=== PATIENT | male | born 1970 | race Caucasian/White ===

== ENCOUNTER 2018-10-05 06:55 | Observation (INO) | payer OTHER ==
[2018-10-04 13:53] LABS: BASOPHILS % 0.5 % (0.0-1.0); EOSINOPHILS # (AUTO) 0.1 (0.0-0.4); EOSINOPHILS % 1.1 % (0.0-6.0); HEMOGLOBIN 14.5 g/dL (14.0-18.0); LYMPHOCYTES # (AUTO) 1.3 (1.0-3.2); LYMPHOCYTES % 20.2 % (18.0-39.1); MEAN CORPUSCULAR HEMOGLOBIN 32.5 pg (28-32); MEAN CORPUSCULAR HGB CONC 35.4 g/dL (31-35); MEAN CORPUSCULAR VOLUME 91.9 fL (81-99); MONOCYTES # (AUTO) 0.5 (0.2-0.8); MONOCYTES % 8.2 % (4.4-11.3); NEUTROPHILS # (AUTO) 4.5 (2.1-6.9); NEUTROPHILS % 69.8 % (38.7-80.0); PLATELET COUNT 167 x10e3/uL (140-360); RED BLOOD COUNT 4.46 x10e6/uL (4.3-5.7); RED CELL DISTRIBUTION WIDTH 12.4 % (11.7-14.4)
[2018-10-04 14:02] LABS: INR 0.81; PARTIAL THROMBOPLASTIN TIME 29.2 seconds (23.8-35.5)
[2018-10-04 14:07] LABS: ANION GAP 12.1 mmol/L (8-16); BLOOD UREA NITROGEN 14 mg/dL (7-26); BUN/CREATININE RATIO 16 (6-25); CALCIUM 10.4 mg/dL (8.4-10.2); CARBON DIOXIDE 28 mmol/L (22-29); CHLORIDE 101 mmol/L (98-107); CREATININE, SERUM 0.85 mg/dL (0.72-1.25); EST GLOMERULAR FILTRATION RATE > 60 ML/MIN (60-); GLUCOSE 100 mg/dL (74-118); POTASSIUM 4.1 mmol/L (3.5-5.1); SODIUM 137 mmol/L (136-145)
--- NOTE | 2018-10-04 14:24 | Diagnostic Imaging Report ---
EXAMINATION: CHEST 2 VIEWS INDICATION: Preop neck surgery, C6-7 spondylosis COMPARISON: Chest x-ray 11/06/2016 FINDINGS: PA and lateral views TUBES and LINES: None. LUNGS: Lungs are well inflated. There is no evidence of pneumonia or pulmonary edema. PLEURA: No pleural effusion or pneumothorax. HEART AND MEDIASTINUM: The cardiomediastinal silhouette is unremarkable.. BONES AND SOFT TISSUES: Mild generative changes of the thoracic spine. No focal osseous lesions. Soft tissues are unremarkable. UPPER ABDOMEN: No free air under the diaphragm. IMPRESSION: No acute thoracic abnormality. Signed by: Dr. Clemente Garcia MD on 10/04/2018 2:20 PM
[~2018-10-05 06:55] MED LIST: BACITRACIN 50,000 UNIT VIAL ONE; BACTRIM DS1 EA; BUPIVACAINE 0.5%/EPI 30 ML SDV INJ ONE; BUPROPION HCL100 MG PO; FISH OIL300 MG; GELATIN SPONGE 12-7MM ONE; LISINOPRIL10 MG PO; NEXIUM40 MG PO; PROBIOTIC COMP1 EACH PO; THROMBIN FOR SOLN 5,000 UNIT VIAL ONE
--- OUTSIDE RECORDS SUMMARY | 2018-10-05 07:16 | XMS REPORT | Continuity of Care Document ---
Author Author [facility] Organization Interface Address Unknown Phone Unavailable Problems Problem Status Onset Date Classification Date Reported Comments Source Essential hypertension Resolved 11/24/2016 Problem 05/16/2018 [facility] H/O hyperlipidemia Resolved 11/24/2016 Problem 05/16/2018 [facility] H/O gastroesophageal reflux (<span ID="[id number]">Confirmed</span>) Resolved 11/24/2016 Problem 05/16/2018 [facility] CAD, ABN STRESS TEST, HYPERLIPIDEMIA Active 11/23/2016 [facility] CCL/LHC W/ POSS PCI/DX: CAD, ABN STRESS Active 11/23/2016 [facility] M50.90 - "CERVICAL DISC DISORDER, UNSP," Active 01/30/2016 [facility] Medications Medication Details Route Status Patient Instructions Ordering Provider Order Date Source Simvastatin 20 mg, 1 tab, Route: PO, Drug form: TAB, Bedtime, Dosing Weight 94.091, kg, Start date: 11/24/16 21:00:00 CRIMINAL RESEARCHER, Duration: 30 day, Stop date: 12/23/16 21:00:00 CSTNotes: (Same as: Zocor) Inactive 11/25/2016 [facility] Nitroglycerin 0.4 mg, 1 tab, Route: SL, Drug form: TAB, Q5Min, Dosing Weight 94.091, kg, PRN Chest Pain, Start date: 11/24/16 9:19:00 CRIMINAL RESEARCHER, Duration: 3 doses or times, Stop date: 11/24/16 17:00:00 CSTNotes: (Same a s:Nitroquick, Nitrostat) "Do Not Crush" Sublingual tablet Inactive 11/24/2016 [facility] multivitamin with minerals 1 tab, Route: PO, Drug Form: TAB, Dosing Weight 94.091, kg, Daily, Start date: 11/24/16 9:00:00 CRIMINAL RESEARCHER, Duration: 30 day, Stop date: 12/23/16 9:00:00 CSTNotes: (Same as:Thera-M, Theragran-M) WASTE: F/P - Black; E - Municipal Trash Bin Give with food. Inactive 11/24/2016 [facility] aspirin 81 mg tablet, enteric coated 81 mg, 1 tab, Route: PO, Drug form: ECTAB, Daily, Dosing Weight 94.091, kg, Start date: 11/24/16 9:00:00 CRIMINAL RESEARCHER, Duration: 30 day, Stop date: 12/23/16 9:00:00 CSTNotes: Do not crush or chew. (Same As: Ecotrin) Inactive 11/24/2016 [facility] Citalopram 10 mg, 1 tab, Route: PO, Drug form: TAB, Daily, Dosing Weight 94.091, kg, Start date: 11/24/16 9:00:00 CRIMINAL RESEARCHER, Duration: 30 day, Stop date: 12/23/16 9:00:00 CRIMINAL RESEARCHER Inactive 11/24/2016 [facility] sodium chloride 0.9% 1000 ml INJ 1,000 mL 1,000 mL, Rate: 75 ml/hr, Infuse over: 13.3 hr, Route: IVPB, Dosing Weight 94.09 kg, Total Volume: 1,000, Start date: 11/24/16 6:08:00 CRIMINAL RESEARCHER, Duration: 30 day, Stop date: 12/24/16 6:07:00 CRIMINAL RESEARCHER Inactive 11/24/2016 [facility] lisinopril 20 mg oral tablet 20 mg=1 tab, PO, Daily, # 30 tab, 0 Refill(s) Inactive 11/24/2016 [facility] simvastatin 20 mg oral tablet 20 mg=1 tab, PO, Bedtime, # 30 tab, 1 Refill(s) Active 11/24/2016 [facility] amLODIPine 10 mg oral tablet 10 mg=1 tab, PO, Daily, # 30 tab, 0 Refill(s) Inactive 11/24/2016 [facility] Fexofenadine hydrochloride 180 MG Oral Tablet [Li] 180 mg=1 tab, PO, Daily, PRN Congestion, # 30 tab, 0 Refill(s) Active 11/24/2016 [facility] citalopram 10 mg oral tablet 10 mg=1 tab, PO, Daily, # 30 tab, 0 Refill(s) Active 11/24/2016 [facility] aspirin 81 mg tablet, enteric coated 81 mg=1 tab, PO, Daily, # 90 tab, 3 Refill(s) Active 11/24/2016 [facility] multivitamin with minerals 1 tab, PO, Daily, 0 Refill(s) Active 11/24/2016 [facility] Allergies, Adverse Reactions, Alerts Substance Category Reaction Severity Reaction type Status Date Reported Comments Source Immunizations Immunization Date Given Site Status Last Updated Comments Source Results Order Name Results Value Reference Range Date Interpretation Comments Source Spine cervical wo contrast MRI Spine cervical wo contrast MRI Spine cervical wo contrast MRI , 05/13/2018 12:13 PM CDT. CLINICAL INDICATION: 47 years Male - M50.90 Cervical disc disorder, unspecified, unspecified cervical region . Comparison: January 30, 2016 plain films. TECHNIQUE: Sagittal T1 and T2 weighted images were followed by axial T2-weighted views of the cervical spine without IV contrast. FINDINGS: The cervical cord is normal in size and signal intensity. There is no syrinx. The cerebellar tonsils are normal in position above the level of the foramen magnum. There is congenital narrowing of the canal, measuring approximately 10 mm, which exaggerates the effects of degenerative changes. The vertebrae are otherwise normal in shape, signal intensity and alignment. The prevertebral soft tissues are normal. Craniocervical junction and c1-c2: No canal or foraminal stenosis C2-C3: There is preservation of the disc signal intensity, height, with no bulging, herniation, spinal stenosis, or neural foraminal stenosis C3-C4: Disc height preserved. 4 mm disc bulge with right greater than left uncovertebral hypertrophy measuring up to 5 mm, making difficult to exclude a foraminal disc protrusion. Mild facet hypertrophy. This results in moderate right neural foraminal narrowing slight form in the right C4 nerve root. Mild right greater than left canal stenosis. C4-C5: Disc height preserved. Midline wide base 4 mm subligamentous disc protrusion with annular fissuring and mild facet hypertrophy. This results in mild bilateral neural foraminal narrowing. Xech-il-bjsxsnok canal stenosis (AP diameter 8 mm) with slight anterior cord flattening. C5-C6: Mild disc height loss. Disc osteophyte complexes and uncovertebral hypertrophy measuring up to 3 mm in the right foramen, making it difficult to exclude a subligamentous disc protrusion in the region. Mild facet hypertrophy and ligamentum flavum thickening. This results in oaur-ve-nczxnmuq canal stenosis with slight anterior cord flattening on the right greater than left. Moderate right and mild left neural foraminal narrowing slight deformity of the right C6 nerve root. C6-C7: Disc height maintained. Diffuse disc osteophyte complexes/uncovertebral hypertrophy measuring up to 4 mm with mild facet hypertrophy and moderate ligamentum flavum thickening. This results in mild to moderate canal stenosis with slight right greater than left anterior cord flattening. Moderate right greater than left neural foraminal narrowing slight deformity of the C7 nerve root. C7-T1: Disc is mildly desiccated with preserved disc height. No disc bulging, herniation, spinal stenosis, or neural foraminal stenosis IMPRESSION: 1. Multilevel disc protrusions and asymmetric disc osteophyte complexes as detailed above. 2. Up to [id number], combined congenital and acquired canal stenosis at C4- 5 through C6-7 with slight anterior cord flattening. No cord signal change. 3. Multilevel foraminal narrowing including deformity of the right C4, right C6, and right greater than left C7 nerve roots. 05/13/2018 - - Read by: Jose Mendoza MD Dictated Date/time: 05/14/18 10:23 Electronically Signed by: Jose Mendoza MD 05/14/18 10:32 [facility] [place] [facility] ABO/Rh O POS 11/24/2016 [facility] BLOOD BANK RESULTS Antibody Scrn Negative (11/24/16 6:10 AM) 11/24/2016 [facility] ELECTROLYTES AGAP 11.8 meq/L 10.0 - 20.0 11/24/2016 [facility] ELECTROLYTES eGFR 113 mL/min/1.73m2 11/24/2016 Result Comment: The eGFR is calculated using the CKD-EPI formula. In most young, healthy individuals the eGFR will be >90 mL/min/1.73m2. The eGFR declines with age. An eGFR of 60-89 may be normal in some populations, particularly the elderly, for whom the CKD-EPI formula has not been extensively validated. Use of the eGFR is not recommended in the following populations: Individuals with unstable creatinine concentrations, including patients and those with serious co-morbid conditions. Patients with extremes in muscle mass or diet. The data above are obtained from the National Kidney Disease Education Program (NKDEP) which additionally recommends that when the eGFR is used in patients with extremes of body mass index for purposes of drug dosing, the eGFR should be multiplied by the estimated BMI. [facility] ELECTROLYTES Calcium Lvl 8.9 mg/dL 8.5 - 10.5 11/24/2016 [facility] ELECTROLYTES CO2 28 meq/L 24 - 32 11/24/2016 [facility] ELECTROLYTES Creatinine Lvl 0.72 mg/dL 0.50 - 1.40 11/24/2016 [facility] ELECTROLYTES Chloride Lvl 104 meq/L 95 - 109 11/24/2016 [facility] ELECTROLYTES Potassium Lvl 3.8 meq/L 3.5 - 5.1 11/24/2016 [facility] ELECTROLYTES Sodium Lvl 140 meq/L 135 - 145 11/24/2016 [facility] ELECTROLYTES BUN 12 mg/dL 7 - 22 11/24/2016 [facility] ELECTROLYTES Glucose Lvl 98 mg/dL 70 - 99 11/24/2016 [facility] HEMATOLOGY Platelet 198 K/CMM 133 - 450 11/24/2016 [facility] HEMATOLOGY MPV 8.3 fL 7.4 - 10.4 11/24/2016 [facility] HEMATOLOGY MCH 31.6 pg 27.0 - 31.0 11/24/2016 [facility] HEMATOLOGY RDW 13.0 % 11.5 - 14.5 11/24/2016 [facility] HEMATOLOGY MCHC 34.9 g/dL 32.0 - 36.0 11/24/2016 [facility] HEMATOLOGY WBC 7.5 K/CMM 3.7 - 10.4 11/24/2016 [facility] HEMATOLOGY Hct 36.5 % 42.0 - 54.0 11/24/2016 [facility] HEMATOLOGY RBC 4.03 M/CMM 4.70 - 6.10 11/24/2016 [facility] HEMATOLOGY Hgb 12.7 g/dL 14.0 - 18.0 11/24/2016 [facility] HEMATOLOGY MCV 90.6 fL 80.0 - 94.0 11/24/2016 [facility] HEMATOLOGY INR 1.00 0.85 - 1.17 11/24/2016 [facility] HEMATOLOGY PTT 36.0 s 22.9 - 35.8 11/24/2016 [facility] HEMATOLOGY PT 13.4 s 12.0 - 14.7 11/24/2016 [facility] HEMATOLOGY Lymphocytes # 2.0 K/CMM 1.0 - 5.5 11/24/2016 [facility] HEMATOLOGY Monocytes # 0.5 K/CMM 0.0 - 0.8 11/24/2016 [facility] HEMATOLOGY Eosinophils # 0.1 K/CMM 0.0 - 0.5 11/24/2016 [facility] HEMATOLOGY Basophils 0.3 % 0.0 - 1.0 11/24/2016 [facility] HEMATOLOGY Segs-Bands # 4.8 K/CMM 1.5 - 8.1 11/24/2016 [facility] HEMATOLOGY Monocytes 7.2 % 2.0 - 12.0 11/24/2016 [facility] HEMATOLOGY Eosinophils 1.3 % 0.0 - 4.0 11/24/2016 [facility] HEMATOLOGY Segs 64.0 % 45.0 - 75.0 11/24/2016 [facility] HEMATOLOGY Lymphocytes 27.2 % 20.0 - 40.0 11/24/2016 [facility] Elbow 3 views DX Elbow 3 views DX EXAM: X-RAY RIGHT ELBOW 3 VIEWS DATE: 03/30/2016 11:08 AM CDT INDICATION: M77.11 Lateral epicondylitis, right elbow COMPARISON: None TECHNIQUE: AP, lateral, and oblique views. Note is made the lateral view is performed in approximately 45 degrees of extension. FINDINGS: No fractures, osseous malalignment, or osseous destructive lesions are seen. Right elbow joint space is well maintained. A small ossific ridging is seen off of the lateral epicondyle of the right humerus. Mineralization is grossly normal. No soft tissue abnormalities are seen. IMPRESSION: Enthesophytic ridging off of the lateral epicondyle of the right humerus, a finding likely associated with the patient's lateral epicondylitis indicated in the history. If concern for injury/tear of the common extensor tendon is present clinically, magnetic resonance imaging of the right elbow would be recommended. 03/30/2016 - - Read by: Layo Jimenez MD Dictated Date/time: 03/30/16 11:14 Electronically Signed by: Layo Jimenez MD 03/30/16 11:16 FINAL REPORT [facility] Spine cervical 2 or 3 view DX Spine cervical 2 or 3 view DX EXAM: XR Spine cervical 2 or 3 view DX DATE: 01/30/2016 12:32 PM CDT INDICATION: M50.90 Cervical disc disorder, unspecified, unspecified cervical region Pain. 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 C1-C6 is visualized. DISCUSSION: No acute fracture is identified. Satisfactory alignment of the joint. No soft tissue abnormality is identified. . IMPRESSION: No acute abnormality. . 01/30/2016 - - Read by: Danelle Crockett MD Dictated Date/time: 01/30/16 13:09 Electronically Signed by: Danelle Crockett MD 01/30/16 13:09 FINAL REPORT [facility] Shoulder 2+ Views Bilateral DX Shoulder 2+ Views Bilateral DX EXAM: XR Shoulder 2+ Views Bilateral DX DATE: 01/30/2016 12:33 PM CDT INDICATION: M50.90 Cervical disc disorder, unspecified, unspecified cervical region Pain. COMPARISON: None available TECHNIQUE: AP internal and external rotation and scapular Y projections of bilateral shoulders. DISCUSSION: No acute fracture is identified. Satisfactory alignment of the joint. There is diffuse ground glass opacification with zones of increased sclerosis involving the marrow of the right left proximal humerus. No adjacent periosteal reactive changes present. No significant soft tissue abnormality visualized. . IMPRESSION: No acute abnormality. Questionable fibrous dysplasia of the left proximal humerus. No aggressive periosteal reactive change. If there is any focal region of pain, cross-sectional imaging is recommended , such as CT or magnetic resonance imaging. 01/30/2016 - - Read by: Danelle Crockett MD Dictated Date/time: 01/30/16 13:10 Electronically Signed by: Danelle Crockett MD 01/30/16 13:18 FINAL REPORT [facility] Spine lumbar wo contrast MRI Spine lumbar wo contrast MRI HISTORY: BACKACHE COMPARISON: Lumbar spine x-ray August 10, 2013 TECHNIQUE: Sagittal T1, T2, STIR, axial T1, T2 MR images of the lumbar spine were obtained without IV contrast. FINDINGS: The last functional disc is presumed L5-S1 and the L5 level is labeled on the sagittal T2 sequence (image 9 ). The lumbar lordosis is maintained. There are no subluxations. The vertebral body heights are within normal limits. No abnormal marrow signal changes are seen. Some congenital canal narrowing is seen in the lower segments the L1-L2: A broad shallow disc protrusion is present without canal or foramina stenosis. L2-L3: Normal. L3-L4: There is mild disc height loss with a circumferential disc in mild canal stenosis. There is no foramina stenosis. L4-L5: There is mild disc height loss. A disc extrusion with inferior migration is asymmetric to the left obliterating the left lateral recess and likely impinging on the left L5 nerve root. There is associated moderate canal stenosis with a 6 mm AP diameter of the spinal canal. There is mild bilateral foramina stenosis from facet arthrosis. L5/S1 : there is moderate disc height loss with a broad shallow disc protrusion asymmetric to the left narrowing the left lateral recess and contacting the left S1 nerve root. There is associated posterior left foramina stenosis impinging on the exiting left L5 nerve root. There is mild canal stenosis. The right foramen is patent. The conus terminates at the level of L1. The visualized spinal cord is normal in signal and volume. The paravertebral soft tissues are unremarkable. IMPRESSION: There is a disc extrusion at L4-L5 with inferior migration asymmetric to the left impinging on the left L5 nerve root in the lateral recess. Moderate canal stenosis present at this level There is a left lateral recess narrowing at L5/S1 from a broad shallow disc protrusion contacting the left S1 nerve root. Facet arthrosis contributes to severe left foramina stenosis impinging on the left L5 nerve root. 10/03/2013 - - Read by: Ally Moncada Dictated Date/time: 10/03/13 16:39 Electronically Signed by: Ally Moncada MD 10/03/13 16:49 FINAL REPORT [facility] Spine lumbar 2 or 3 views Spine lumbar 2 or 3 views EXAMINATION: Lumbar AP, lateral and coned down lumbosacral views INDICATION: Back pain. DISCUSSION: There is normal alignment of the lumbar spine vertebral bodies. No fractures or dislocations are seen. The pedicles and transverse processes are intact. L3-L4, L4-L5 and L5-S1 moderate disc narrowing. Diffuse small osteophytes are noted. Multilevel facet hypertrophic changes are seen. If clinical concern persists may consider further evaluation with CT or MRI of the lumbar spine. IMPRESSION: L3-L4, L4-L5 and L5-S1 moderate disc narrowing. Diffuse small osteophytes. Multilevel facet hypertrophic changes. 08/10/2013 - - Read by: Saeed Diaz Dictated Date/time: 08/10/13 12:36 Electronically Signed by: Saeed Diaz MD 08/10/13 12:37 FINAL REPORT [facility] Hip min 2 views Hip min 2 views TYPE OF EXAM: Left hip 2 views COMPARISON: None. No fracture or dislocation is demonstrated. No lytic or blastic lesion. The joints are normal in appearance. Visualized soft tissues are unremarkable. No radiopaque foreign body is visualized. IMPRESSION: Normal exam. 08/10/2013 - - Read by: Saeed Diaz Dictated Date/time: 08/10/13 12:22 Electronically Signed by: Saeed Diaz MD 08/10/13 12:23 FINAL REPORT [facility] Vital Signs Vital Sign Value Date Comments Source Systolic (mm Hg) 119 11/24/2016 [facility] Diastolic (mm Hg) 65 11/24/2016 [facility] Systolic (mm Hg) 114 11/24/2016 [facility] Diastolic (mm Hg) 60 11/24/2016 [facility] Systolic (mm Hg) 115 11/24/2016 [facility] Diastolic (mm Hg) 63 11/24/2016 [facility] Weight 94.091 11/24/2016 [facility] Height 167.64 cm 11/24/2016 [facility] BMI Calculated 33.48 11/24/2016 [facility] Temperature Oral (F) 98.8 F 11/24/2016 [facility] Encounters Location Location Details Encounter Type Encounter Number Reason For Visit Attending Provider ADM Date DC Date Status Source [facility] Outpatient Imaging - [employer] [facility] [id number] Saulo Sinclair 01/30/2016 01/31/2016 [facility] Outpatient Imaging - [employer] [facility] [id number] Jose Briceño 03/30/2016 03/31/2016 [facility] Bedded Outpatient [id number] Velma Juan 11/24/2016 11/24/2016 [facility] - [place] [facility] [id number] Saulo Sinclair 05/13/2018 05/14/2018 [facility] Procedures Procedure Code Date Perfomer Comments Source Laminectomy [id number] 11/24/2016 [facility] Laminectomy [id number] 11/24/2016 [facility]
--- OUTSIDE RECORDS SUMMARY | 2018-10-05 07:16 | XMS REPORT | Summary of Care ---
Author Author [facility] Outpatient Imaging [facility] Outpatient Imaging [facility] Address Unknown Phone Unavailable Encounter HQ Encntr_alias(FIN) [id number] Date(s): 03/30/16 - 03/30/16 [facility] Outpatient Imaging [facility] [address] [facility], [address] [phone] Discharge Disposition: Home Attending Physician: Jose Briceño MD Vital Signs No data available for this section Problem List No data available for this section Allergies, Adverse Reactions, Alerts Substance Reaction Severity Status NKDA1 Active 1Data migrated from [employer] on 12/30/15. Originally documented as NKA. Medications No data available for this section Results No data available for this section Immunizations No data available for this section Procedures No data available for this section Social History No data available for this section Assessment and Plan No data available for this section
--- OUTSIDE RECORDS SUMMARY | 2018-10-05 07:16 | XMS REPORT | Summary of Care ---
Author Author [facility] Outpatient Imaging [facility] Outpatient Imaging [facility] Address Unknown Phone Unavailable Encounter HQ Encntr_alias(FIN) [id number] Date(s): 01/30/16 - 01/30/16 [facility] Outpatient Imaging [facility] [address] [facility], [address] [phone] Discharge Disposition: Home Attending Physician: Saulo Sinclair MD Vital Signs No data available for this section Problem List No data available for this section Allergies, Adverse Reactions, Alerts Substance Reaction Severity Status NKDA1 Active 1Data migrated from [employer] on 12/30/15. Originally documented as NKA. Medications No data available for this section Results No data available for this section Immunizations No data available for this section Procedures No data available for this section Social History No data available for this section Assessment and Plan No data available for this section
--- OUTSIDE RECORDS SUMMARY | 2018-10-05 07:17 | XMS REPORT | Summary of Care ---
Author Author [facility] [place] Organization [facility] [place] Address Unknown Phone Unavailable Encounter HQ Sabra_brenda(FIN) [id number] Date(s): 05/13/18 - 05/13/18 [facility] Outpatient [facility] [place] [address] [place] [phone] Discharge Disposition: Home or Self Care Attending Physician: Saulo Sinclair MD Referring Physician: EVAN MAO Vital Signs No data available for this section Problem List Condition Effective Dates Status Health Status Informant Essential 11/24/16 Resolved hypertension(Confirm ed) H/O 11/24/16 Resolved hyperlipidemia(Confi rmed) H/O gastroesophageal 11/24/16 Resolved reflux (GERD)(Confirmed) Allergies, Adverse Reactions, Alerts Substance Reaction Severity Status NKDA1 Active 1Data migrated from [employer] on 12/30/15. Originally documented as NKA. Medications No data available for this section Results No data available for this section Immunizations No data available for this section Procedures Procedure Date Related Diagnosis Body Site Status Laminectomy 11/24/16 Completed Social History Social History Type Response Smoking Status Never smoker; Type: Cigarettes; Previous treatment: None; Ready to change: No; Concerns about tobacco use in household: No; Exposure to Tobacco Smoke None; Cigarette Smoking Last 365 Days No; Reg Smoking Cessation Counseling No entered on: 11/24/16 Assessment and Plan No data available for this section
--- OUTSIDE RECORDS SUMMARY | 2018-10-05 07:17 | XMS REPORT ---
Author Author [facility] Address Unknown Phone Unavailable Care Team Providers Care Carpenter [employer] Name Role Phone CORTNEY GARCIA Unavailable Unavailable Problems This patient has no known problems. Allergies, Adverse Reactions, Alerts This patient has no known allergies or adverse reactions. Medications This patient has no known medications. Results Test Description Test Time Test Comments Text Results Atomic Results Result Comments CHEST 2 VIEWS 2018-10-04 14:12:00 [place] [address] Patient Name: CAT MAYORGA MR #: [id number] : 1970 Age/Sex: 47/M Req #: [id number] [facility] Physician: Ordered by: CORTNEY GARCIA MD Report #: [id number] Location: OR Room/Bed: Procedure: [id number] DX/CHEST 2 VIEWS Exam Date: 10/04/18 Exam Time: 1345 REPORT STATUS: Signed EXAMINATION: CHEST 2 VIEWS INDICATION: Preop neck surgery, C6-7 spondylosis COMPARISON: Chest x-ray 11/06/2016 FINDINGS: PA and lateral views TUBES and LINES: None. LUNGS: Lungs are well inflated. There is no evidence of pneumonia or pulmonary edema. PLEURA: No pleural effusion or pneumothorax. HEART AND MEDIASTINUM: The cardiomediastinal silhouette is unremarkable.. BONES AND SOFT TISSUES: Mild generative changes of the thoracic spine. No focal osseous lesions. Soft tissues are unremarkable. UPPER ABDOMEN: No free air under the diaphragm. IMPRESSION: No acute thoracic abnormality. Signed by: Dr. Maricruz Garcia MD on 10/04/2018 2:20 PM Dictated By: MARICRUZ GARCIA MD [id number] Transcribed By: WALLACE on 10/04/18 142 COPY TO: CORTNEY GARCIA MD
--- OUTSIDE RECORDS SUMMARY | 2018-10-05 07:17 | XMS REPORT | Summary of Care ---
Author Author [facility] Organization [facility] Address Unknown Phone Unavailable Encounter SAMANTHA Singh(ANTWAN) [id number] Date(s): 11/24/16 - 11/24/16 [facility] [address] [employer] provided by [employer] [facility] [employer] [place] [address]- Discharge Disposition: Home or Self Care Attending Physician: Velma Juan MD Admitting Physician: Velma Juan MD Referring Physician: Velma Juan MD Vital Signs 1 2 3 Most recent to oldest [Reference Range]: 167.64 cm (11/24/16 6:08 AM) Height 98.8 DegF (11/24/16 6:00 AM) Temperature Oral [96.4-99.1 DegF] 119/65 mmHg (11/24/16 12:30 PM) 114/60 mmHg (11/24/16 12:15 PM) 115/63 mmHg (11/24/16 12:00 PM) Blood Pressure [90-140/60-90 mmHg] 94.091 kg (11/24/16 6:08 AM) Weight 33.48 m2 (11/24/16 6:08 AM) Body Mass Index Problem List Condition Effective Dates Status Health Status Informant Essential 11/24/16 Resolved hypertension(Confirm ed) H/O 11/24/16 Resolved hyperlipidemia(Confi rmed) H/O gastroesophageal 11/24/16 Resolved reflux (GERD)(Confirmed) Allergies, Adverse Reactions, Alerts Substance Reaction Severity Status NKDA1 Active 1Data migrated from [place] on 12/30/15. Originally documented as NKA. Medications Li 180 mg oral tablet 180 mg=1 tab, PO, Daily, PRN Congestion, # 30 tab, 0 Refill(s) Start Date: 11/24/16 Stop Date: 12/24/16 Status: Ordered amLODIPine 10 mg oral tablet 10 mg=1 tab, PO, Daily, # 30 tab, 0 Refill(s) Start Date: 11/24/16 Stop Date: 11/24/16 Status: Discontinued aspirin 81 mg tablet, enteric coated 81 mg=1 tab, PO, Daily, # 90 tab, 3 Refill(s) Start Date: 11/24/16 Status: Ordered aspirin 81 mg tablet, enteric coated 81 mg, 1 tab, Route: PO, Drug form: ECTAB, Daily, Dosing Weight 94.091, kg, Star t date: 11/24/16 9:00:00 SACK [employer]ER, Duration: 30 day, Stop date: 12/23/16 9:00:00 SACK [employer]ANER Notes: Do not crush or chew.(Same As: Ecotrin) Start Date: 11/24/16 Stop Date: 11/24/16 Status: Discontinued citalopram 10 mg, 1 tab, Route: PO, Drug form: TAB, Daily, Dosing Weight 94.091, kg, Start date: 11/24/16 9:00:00 SACK CLEANER, Duration: 30 day, Stop date: 12/23/16 9:00:00 S[employer] CLE[employer]ER Start Date: 11/24/16 Stop Date: 11/24/16 Status: Discontinued citalopram 10 mg oral tablet 10 mg=1 tab, PO, Daily, # 30 tab, 0 Refill(s) Start Date: 11/24/16 Status: Ordered lisinopril 20 mg oral tablet 20 mg=1 tab, PO, Daily, # 30 tab, 0 Refill(s) Start Date: 11/24/16 Stop Date: 11/24/16 Status: Discontinued multivitamin with minerals 1 tab, PO, Daily, 0 Refill(s) Start Date: 11/24/16 Status: Ordered multivitamin with minerals 1 tab, Route: PO, Drug Form: TAB, Dosing Weight 94.091, kg, Daily, Start date: 0 11/24/16 9:00:00 SACK CLEANER, Duration: 30 day, Stop date: 12/23/16 9:00:00 SACK CLEANER Notes: (Same as:Thera-M, Theragran-M)WASTE: F/P - Black; E - Municipal Trash Bin Give with food. Start Date: 11/24/16 Stop Date: 11/24/16 Status: Discontinued nitroglycerin SL Tab 0.4 mg, 1 tab, Route: SL, Drug form: TAB, Q5Min, Dosing Weight 94.091, kg, PRN C hest Pain, Start date: 11/24/16 9:19:00 SACK CLEANER, Duration: 3 doses or times, Stop da te: 11/24/16 17:00:00 SACK CLEANER Notes: (Same as:Nitroquick, Nitrostat)"Do Not Crush" Sublingual tablet Start Date: 11/24/16 Stop Date: 11/24/16 Status: Discontinued simvastatin 20 mg, 1 tab, Route: PO, Drug form: TAB, Bedtime, Dosing Weight 94.091, kg, Star t date: 11/24/16 21:00:00 SACK CLEANER, Duration: 30 day, Stop date: 12/23/16 21:00:00 CS T Notes: (Same as: Zocor) Start Date: 11/24/16 Stop Date: 11/24/16 Status: Canceled simvastatin 20 mg oral tablet 20 mg=1 tab, PO, Bedtime, # 30 tab, 1 Refill(s) Start Date: 11/24/16 Status: Ordered sodium chloride 0.9% 1000 ml INJ 1,000 mL 1,000 mL, Rate: 75 ml/hr, Infuse over: 13.3 hr, Route: IVPB, Dosing Weight 94.09 kg, Total Volume: 1,000, Start date: 11/24/16 6:08:00 SACK CLEANER, Duration: 30 day, St op date: 12/24/16 6:07:00 SACK CLEANER Start Date: 11/24/16 Stop Date: 11/24/16 Status: Discontinued Results BLOOD BANK RESULTS Most recent to 1 oldest [Reference Range]: ABO/Rh O POS *Unknown* (11/24/16 6:10 AM) Antibody Scrn Negative (11/24/16 6:10 AM) ELECTROLYTES Most recent to 1 oldest [Reference Range]: Sodium Lvl [135-145 140 mEq/L mEq/L] (11/24/16 6:10 AM) Potassium Lvl 3.8 mEq/L [3.5-5.1 mEq/L] (11/24/16 6:10 AM) Chloride Lvl [95-109 104 mEq/L mEq/L] (11/24/16 6:10 AM) CO2 [24-32 mEq/L] 28 mEq/L (11/24/16 6:10 AM) AGAP [10.0-20.0 11.8 mEq/L mEq/L] (11/24/16 6:10 AM) CHEM PANEL Most recent to 1 oldest [Reference Range]: Creatinine Lvl 0.72 mg/dL [0.50-1.40 mg/dL] (11/24/16 6:10 AM) eGFR 113 mL/min/1.73m2 1 *NA* (11/24/16 6:10 AM) BUN [7-22 mg/dL] 12 mg/dL (11/24/16 6:10 AM) Glucose Lvl [70-99 98 mg/dL mg/dL] (11/24/16 6:10 AM) Calcium Lvl 8.9 mg/dL [8.5-10.5 mg/dL] (11/24/16 6:10 AM) 1Result Comment: The eGFR is calculated using the [...] from the National Kidney Disease Education Program ( NKDEP) which additionally recommends that when the eGFR is used in patients with extremes of body mass index for purposes of drug dosing, the eGFR should be mul tiplied by the estimated BMI. HEMATOLOGY Most recent to 1 oldest [Reference Range]: WBC [3.7-10.4 K/CMM] 7.5 K/CMM (11/24/16 6:10 AM) RBC [4.70-6.10 4.03 M/CMM M/CMM] *LOW* (11/24/16 6:10 AM) Hgb [14.0-18.0 g/dL] 12.7 g/dL *LOW* (11/24/16 6:10 AM) Hct [42.0-54.0 %] 36.5 % *LOW* (11/24/16 6:10 AM) MCV [80.0-94.0 fL] 90.6 fL (11/24/16 6:10 AM) MCH [27.0-31.0 pg] 31.6 pg *HI* (11/24/16 6:10 AM) MCHC [32.0-36.0 34.9 g/dL g/dL] (11/24/16 6:10 AM) RDW [11.5-14.5 %] 13.0 % (11/24/16 6:10 AM) Platelet [133-450 198 K/CMM K/CMM] (11/24/16 6:10 AM) MPV [7.4-10.4 fL] 8.3 fL (11/24/16 6:10 AM) Segs [45.0-75.0 %] 64.0 % (11/24/16 6:10 AM) Lymphocytes 27.2 % [20.0-40.0 %] (11/24/16 6:10 AM) Monocytes [2.0-12.0 7.2 % %] (11/24/16 6:10 AM) Eosinophils [0.0-4.0 1.3 % %] (11/24/16 6:10 AM) Basophils [0.0-1.0 0.3 % %] (11/24/16 6:10 AM) Segs-Bands # 4.8 K/CMM [1.5-8.1 K/CMM] (11/24/16 6:10 AM) Lymphocytes # 2.0 K/CMM [1.0-5.5 K/CMM] (11/24/16 6:10 AM) Monocytes # [0.0-0.8 0.5 K/CMM K/CMM] (11/24/16 6:10 AM) Eosinophils # 0.1 K/CMM [0.0-0.5 K/CMM] (11/24/16 6:10 AM) PT [12.0-14.7 13.4 seconds seconds] (11/24/16 6:10 AM) INR [0.85-1.17] 1.00 (11/24/16 6:10 AM) PTT [22.9-35.8 36.0 seconds seconds] *HI* (11/24/16 6:10 AM) Immunizations No data available for this section Procedures Procedure Date Related Diagnosis Body Site Laminectomy 11/24/16 Social History Social History Type Response Smoking Status Never smoker; Type: Cigarettes; Previous treatment: None; Ready to change: No; Concerns about tobacco use in household: No; Exposure to Tobacco Smoke None; Cigarette Smoking Last 365 Days No; Reg Smoking Cessation Counseling No Assessment and Plan No data available for this section
[2018-10-05] MEDS ORDERED: CEFAZOLIN SOD 2 GM/D5W 50ML 50 ML IV ONE (07:42)
[2018-10-05] MEDS ORDERED: BUPIVACAINE HCL 0.5% INJ 30 ML VIAL INJ ONE (09:46)
[2018-10-05] MEDS: LACTATED RINGER'S 1,000 ML IV SCH ×2 (10:42→19:02)
[2018-10-05] MEDS ORDERED: CARISOPRODOL 350 MG TAB PO PRN (10:45)
[2018-10-05] MEDS ORDERED: MORPHINE SULFATE 5 MG/ML VIAL IM PRN (10:45)
[2018-10-05] MEDS ORDERED: HYDROMORPHONE 2MG/ML 2 MG/ML ML IV PRN (10:45)
[2018-10-05] MEDS ORDERED: MAGNESIUM/ALUMINUM/SIMETHICONE 30 ML UDC PO PRN (10:45)
[2018-10-05] MEDS ORDERED: CEPACOL SORE THROAT LOZENGES PO PRN (10:45)
[2018-10-05] MEDS ORDERED: PROMETHAZINE HCL (IM) 25 MG/ML VIAL IM PRN (10:45)
[2018-10-05] MEDS ORDERED: ACETAMINOPHEN 325 MG TAB PO PRN (10:45)
[2018-10-05] MEDS ORDERED: ONDANSETRON HCL INJ 2 MG/ML VIAL IV PRN (10:45)
[2018-10-05] MEDS ORDERED: FENTANYL CITRATE/PF 100MCG/2 ML INJ ONE ×2 (11:34→14:24)
[2018-10-05] MEDS ORDERED: ATROPINE SULFATE 0.1 MG/ML 10ML SYR ONE (11:40)
--- NOTE | 2018-10-05 13:21 | Operative Report ---
DATE OF PROCEDURE: October 05, 2018 PREOPERATIVE DIAGNOSES 1. 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 2. Right carpal tunnel syndrome, M56.01. POSTOPERATIVE DIAGNOSES 1. 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 2. Right carpal tunnel syndrome, M56.01. PROCEDURES 1. C6-C7 anterior cervical diskectomy and microsurgical osteophyte resection and allograft fusion, 27434. 2. Preparation of [employer] cortical cancellous allograft, 24197. 3. C6-C7 anterior cervical plating with Synthes ZPN plate, 54819. 4. Right carpal tunnel release, 09603-98. ANESTHESIA: General. INDICATIONS: The patient is a man who presents with C7 radiculopathy and right carpal tunnel syndrome and was taken to the operating room for simultaneous treatment of both conditions. PROCEDURE: After induction of general anesthesia, the patient was placed on the operating table in the supine position. The right side of the neck was prepped and draped in a sterile fashion. The fluoroscopic C-arm was positioned in cross-table lateral orientation. Motor evoked potentials were monitored. A transverse incision was created on the right side of the neck superimposed on the C6-C7 disk space as determined by fluoroscopy. The platysma was divided in line with the incision. The subplatysmal dissection was carried out. An avascular plane of dissection was developed medial to the sternocleidomastoid muscle and was followed medial to the carotid sheath to the anterior border the cervical spine. The deep cervical fascia was opened. The esophagus was retracted to the left. The attachments of the longus coli muscles to the anterolateral aspects of the vertebral bodies of C6 and C7 were divided. The anterior longitudinal ligament was resected. Douglass posts were inserted into C6 and C7. The Douglass distractor was used to distract the disk space. The anterior annulus of the disk was incised with a #11 blade, and the contents of the disk were thoroughly evacuated with angled curets and pituitary rongeurs. The posterior osteophytes were meticulously drilled with a 2-mm cutting bur until they were completely removed. The posterior annulus of the disk, herniated disk material and the posterior longitudinal ligament were resected layer by layer until the dura was fully exposed and decompressed. The medial aspects of the uncinate processes were resected bilaterally to further expose and decompress the origins of the corresponding nerve roots. After satisfactory decompression had been achieved, the endplates were prepared for fusion. A piece of MTF cortical cancellous allograft measuring 9 mm in height was selected and was loaded onto a Synthes ZPN plate, after it had been prepared in saline. The construct was then inserted into the disk space under distraction and fluoroscopic guidance and tamped in place. The plate was then screwed to the endplates of C6 and C7 with 2 pairs of 14-mm screws. All screws were locked. An excellent construct was obtained. The wound was copiously irrigated with Bacitracin solution. Meticulous hemostasis was secured. Retractor was removed. The platysma was closed with 3-0 Vicryl sutures. The skin was closed with 4-0 Monocryl suture in a subcuticular fashion. Steri-Strips and dressing were applied. The drapes were removed, and the right arm was abducted over a hand table. The right hand, wrist and forearm were prepped and draped circumferentially in a sterile fashion. A tourniquet was inflated over the upper arm to 250 mmHg. A small midline incision was created over the median palmar crease of the hand just distal to the distal flexor crease of the wrist. The subcutaneous fat was divided. The transverse carpal ligament was identified and incised with a #15 C-blade until the underlying median nerve came into view. As the shipping assistant retracted the skin edges, the transverse carpal ligament was divided proximally and distally until the full length of the ligament had been divided and the full length of the median nerve was exposed and decompressed within the carpal tunnel. The point of maximum compression of the nerve appeared to be about 3 cm distal to the distal flexor crease of the wrist where the ligament was at its thickest. More distally, the recurrent motor branch of the nerve was preserved within its fat pad. The wound was copiously irrigated with Bacitracin solution. Meticulous hemostasis was secured. Retractor was removed. The subcutaneous layer was closed with 3-0 Vicryl sutures. The skin was closed with 3-0 nylon sutures in a vertical mattress fashion. A dressing was applied. The patient was awakened, extubated and taken to the postanesthesia care unit in stable condition. No intraoperative complications were encountered. Estimated blood loss was minimal. Job#: [id number] MH
[2018-10-05] MEDS ORDERED: CEFAZOLIN SOD 1 GM/D5W 50ML 50 ML IV SCH (14:00)
[2018-10-05] MEDS ORDERED: SEVOFLURANE INHAL SOLN 250 ML PEN BTL ONE (14:24)
[2018-10-05] MEDS ORDERED: MIDAZOLAM HCL 2 MG/2 ML VIAL ONE (14:24)
[2018-10-05] MEDS ORDERED: SUCCINYLCHOLINE 200 MG/10 ML SYR ONE (14:24)
[2018-10-05] MEDS ORDERED: ONDANSETRON HCL INJ 2 MG/ML VIAL ONE (14:24)
[2018-10-05] MEDS ORDERED: PROPOFOL IV EMULSION 10 MG/ML 20 ML VIAL ONE (14:24)
[2018-10-05] MEDS ORDERED: DEXAMETHASONE SOD PHOS INJ 4 MG/ML VIAL ONE (14:24)
[2018-10-05] MEDS ORDERED: LIDOCAINE HCL 2% LOCAL INJ 5 ML SDV VIAL INJ ONE (14:24)
[2018-10-05] MEDS ORDERED: ROCURONIUM BROMIDE 10 MG/ML 5ML VIAL ONE (14:24)
[2018-10-05] MEDS ORDERED: MORPHINE SULFATE INJ 10 MG/ML IM PRN ×2 (15:00)
[2018-10-05] MEDS: PANTOPRAZOLE SOD 40 MG TABEC PO SCH (15:31)
[2018-10-05] MEDS ORDERED: CEFAZOLIN SOD 1 GM VIAL IV SCH (17:00)
[2018-10-05] MEDS: CEFAZOLIN SOD 1 GM/D5W 50ML 50 ML IV SCH (17:30)
[2018-10-05 17:37] VITALS: BP 143/69
[2018-10-05 18:13] VITALS: BP 143/69
[2018-10-05] MEDS: OXYCODONE/ACETAMINOPHEN 5-325 1 EACH TABLET PO PRN ×2 (19:45→20:51)
[2018-10-05 20:00] VITALS: BP 138/74
[2018-10-05] MEDS ORDERED: ZOLPIDEM TARTRATE 5 MG TAB PO PRN (21:00)
[2018-10-06] VITALS: BP_SYST 130; BP_SYST 138; BP_DIAS 60; BP_DIAS 74
[2018-10-06] MEDS: LACTATED RINGER'S 1,000 ML IV SCH (00:49)
[2018-10-06] MEDS: CEFAZOLIN SOD 1 GM/D5W 50ML 50 ML IV SCH ×2 (00:58→08:09)
[2018-10-06 04:00] VITALS: BP 119/58
[2018-10-06] MEDS: OXYCODONE/ACETAMINOPHEN 5-325 1 EACH TABLET PO PRN ×2 (04:06→10:10)
--- NOTE | 2018-10-06 07:17 | Diagnostic Imaging Report ---
Exam: Cervical spine, 2 views History: Status post surgery Comparison: None. Findings: See impression Impression: 1. Postsurgical changes of anterior fusion and disc spacer placement at C6-C7 with intact surgical hardware and maintained alignment. Mild prevertebral soft tissue swelling, posterior cervical skin katlyn and subcutaneous gas consistent with recent surgery. Signed by: Dr. Jovany Sapp M.D. on 10/06/2018 7:13 AM
[2018-10-06 08:00] VITALS: BP 113/72
[2018-10-06] MEDS: PANTOPRAZOLE SOD 40 MG TABEC PO SCH (08:36)
[2018-10-06] MEDS ORDERED: BUPROPION HCL 100 MG TAB PO SCH (09:00)
== END 2018-10-06 10:08 | disposition home or self-care (01) ==
LOC: OR 06:55 → PACU V 10:43 → MED/SURG 14:16
PROVIDERS: ADMIT Neurological Surgery; ATTEND Neurological Surgery
DX: M50.123 Cervical disc disorder at C6-C7 level with radiculopathy (principal); M47.22 Other spondylosis with radiculopathy, cervical region; G56.01 Carpal tunnel syndrome, right upper limb; I10 Essential (primary) hypertension; Z82.49 Family history of ischemic heart disease and other diseases of the circulatory system; Z01.810 Encounter for preprocedural cardiovascular examination; Z01.812 Encounter for preprocedural laboratory examination; Z01.811 Encounter for preprocedural respiratory examination
CPT/HCPCS: 20931; 22551; 22845; 36415; 64721; 71046; 72040; 80048; 85025; 85610; 85730; 86850; 86900; 88304; 93005; C1713 ×2; C9359; G0378 ×2; J0690 ×2; J1100; J2001; J2250; J2405; J2704; J7120; S0164 ×2; 77003; J2270